=== PATIENT | female | born 1965 | race Caucasian/White ===

== ENCOUNTER 2017-10-15 11:34 | Outpatient (CLI) | payer OTHER | END 2017-10-15 11:35 | disposition critical access hospital (66) | LOC: EMS 11:34 | PROVIDERS: ATTEND Surgery | DX: R46.4 Slowness and poor responsiveness (principal); R73.09 Other abnormal glucose | CPT/HCPCS: A0425; A0427 ==

== ENCOUNTER 2017-10-15 11:46 | Emergency (ER) | payer OTHER ==
--- NOTE | 2017-10-15 11:59 | ED Physician Documentation ---
PD HPI FOCAL NEURO - Stated complaint Stated Complaint: AMS - Chief complaint Chief Complaint: Neuro - History obtained from History obtained from: Family, EMS - History of Present Illness Timing - onset: Today Timing - duration: Minutes Timing - details: Abrupt onset Severity of deficit: Severe Weakness: Arm, Hand, Leg, Foot, Right Baseline status: positive: A&OX3, ambulatory, indep Similar symptoms before: Has not had sx before Recently seen: Not recently seen - Additional information Additional information: states that his was well at 10 AM when he left to go to [employer]. He states that she did not sleep well last night and that she has been under a lot of stress recently with excessive work and she is only sleeping several hours per night and drinking a lot of energy drinks. Today when he came home from [employer] she was sitting on an easy chair and not responding to him. When he could not get more than a word or 2 from her, he called 911. Medics arrived to find her not responding to them and with some right sided deficit. Review of Systems Unable to obtain: AMS, Other (The review of systems is taken from the .) Constitutional: denies: Fever Eyes: denies: Decreased vision Ears: denies: Ear pain Nose: denies: Rhinorrhea / runny nose, Congestion Throat: denies: Sore throat Cardiac: denies: Chest pain / pressure Respiratory: denies: Dyspnea, Cough GI: denies: Abdominal Pain, Vomiting : denies: Dysuria Skin: denies: Rash Musculoskeletal: denies: Neck pain, Back pain, Extremity pain, Extremity swelling Neurologic: denies: Generalized weakness, Focal weakness, Numbness, Headache, Head injury, LOC PD PAST MEDICAL HISTORY - Present Medications Home Medications: Ambulatory Orders Medication Instructions Recorded Confirmed HYDROcod/ACETAM 5/325 [[place] 5/325] 1 each PO 10/15/17 Naproxen 500 mg PO 10/15/17 10/15/17 Ondansetron Odt [Zofran Odt] 10/15/17 Oxycodone HCl/Acetaminophen 1 each PO 10/15/17 [Endocet 7.5-325 mg Tablet] - Allergies Allergies/Adverse Reactions: Allergies Allergy/AdvReac Type Severity Reaction Status Date / Time No Known Drug Allergies Allergy Verified 10/15/17 14:42 PD ED PE NORMAL - Vitals Vital signs reviewed: Yes - General General: Well developed/nourished, Other (The patient is not responsive to voice. She does have a symetric grimmace to pain but is unable to cooperate with the stroke scale. ) - HEENT HEENT: Atraumatic, Other (The right eye is deviated laterally and inferiorly both eyes move with an attempt to follow and pupils are reactive.) - Neck Neck: Supple, no meningeal sign, No bony TTP, No bruit - Cardiac Cardiac: RRR, No murmur - Respiratory Respiratory: No respiratory distress, Clear bilaterally - Abdomen Abdomen: Soft, Non tender - Back Back: No CVA TTP, No spinal TTP - Derm Derm: Normal color, Warm and dry, No rash - Extremities Extremities: No deformity, No edema - Neuro Neuro: Other. No: No sensory deficit Eye Opening: To Pain Motor: Localizes to Pain - Psych Psych: Other (mood is withdrawn and the affect is blunted.) NIHSS - Time Time: 14:10 (partially responsive for cooperation) - Level of Consciousness Level of consciousness: (1) Not alert, but arousable by minor stimulation to obey, or answer LOC Questions: (1) Answers one Q correctly LOC Commands: (1) Performs one correctly - Gaze Best Gaze: (1) Partial gaze palsy - Visual Visual: (0) No loss - Facial Palsy Facial Palsy: (1) Minor paralysis - Motor Arms (both separate) Motor Arm (right): (1) Drift Motor Arm (left): (0) No drift - Motor Legs (both separate) Motor Leg (right): (0) No drift Motor Leg (left): (0) No drift - Limb Ataxia Limb Ataxia: (1) Present in 1 limb - Sensory Sensory: (0) Normal - Best Language Best Language: (1) [id number] - Dysarthria Dysarthria: (1) [id number] dysarthria - Extinction and Inattention (formally neg Extinction and inattention: (1) Visual,tactile,auditory,spatial, or personal inattention - Total Score/Results Total Score/Result: 10 Results - Vitals Vitals: Vital Signs - 24 hr 10/15/17 10/15/17 10/15/17 11:48 13:04 13:06 Temperature 35.9 C L Heart Rate 67 67 Respiratory 18 18 Rate Blood Pressure 174/98 H 165/92 H O2 Saturation 99 99 10/15/17 10/15/17 10/15/17 13:58 14:18 15:22 Temperature Heart Rate 68 67 67 Respiratory 16 18 16 Rate Blood Pressure 147/89 H 178/87 H 172/94 H O2 Saturation 100 100 99 Oxygen O2 Source Room air - EKG (time done) 1255 Rate: Rate (enter#) (65) Rhythm: NSR, LAE QRS: LVH Compare to prior EKG: Old EKG unavailable Computer interpretation: Agree with computer - Labs Labs: Laboratory Tests 10/15/17 10/15/17 10/15/17 11:55 11:55 11:55 WBC 6.6 RBC 4.89 Hgb 13.6 Hct 39.9 MCV 81.6 MCH 27.8 MCHC 34.1 RDW 13.9 Plt Count 229 MPV 9.0 Neut # 3.5 Lymph # 2.5 [place] # 0.4 Eos # 0.2 Baso # 0.0 Absolute Nucleated RBC 0.00 Nucleated RBC % 0.0 PT 11.1 INR 1.0 Sodium 136 Potassium 3.7 Chloride 98 L Carbon Dioxide 27 Anion Gap 11.0 BUN 15 Creatinine 0.7 Estimated GFR (MDRD) 89 Glucose 297 H Calcium 9.3 Total Bilirubin 0.6 AST 25 ALT 29 Alkaline Phosphatase 115 Total Protein 7.6 Albumin 3.8 Globulin 3.8 Albumin/Globulin Ratio 1.0 Lipase 10 L - Rads (name of study) Neck CT angiogram Radiology: Prelim report reviewed, EMP read indepedently, See rad report CT angiogram head Radiology: Prelim report reviewed, EMP read indepedently, See rad report Procedures - IVC sono (time) 1350 Bedside IVC sono: IVC measures (cm) (0.88), Dehydration (est 2 liter deficit.l) PD MEDICAL DECISION MAKING - ED course Complexity details: reviewed old records, reviewed results, re-evaluated patient , considered differential, d/w patient, d/w family ED course: 52-year-old female working 2 jobs and sleeping very little has developed what appears to be an acute stroke. On initial presentation the patient did not appear cooperative and appeared very sleepy. During her CT scan she woke up, yawned deeply and moved both of her arms up above her head, stretched both of her legs and at this point I was concerned about a stroke mimic. When she returned from CT it was apparent that she does have a disconjugate gaze and this was persistent as well as an expressive aphasia and some dysarthria. She continued to have some weakness on the right side although she could perform some tasks directed with this. Tele-stroke was set up and Dr. Alcazar was able to assist us in evaluating the patient's stroke symptoms and recommends the use of alteplase intravenously which was administered. She is administered IV saline as well for dehydration estimated at 2 liters by interrogation of the IVC. She has prompt improvement in her lateralizing symptoms but continues to have the dysconjugate gaze. Dr. Hu is accepting in transfer. Thank you. Departure - Departure Disposition: 02 Transfer Acute Care Hosp Clinical Impression: Cerebrovascular accident (CVA) Qualifiers: CVA mechanism: unspecified Qualified Code(s): I63.9 - Cerebral infarction, unspecified
[2017-10-15 12:04] LABS: BASOPHILS % (AUTO) 0.6 %; EOSINOPHILS # (AUTO) 0.2 10^3/uL (0.0-0.7); EOSINOPHILS % (AUTO) 2.7 %; HGB - HEMOGLOBIN 13.6 g/dL (12.0-16.0); LYMPHOCYTES # (AUTO) 2.5 10^3/uL (1.5-3.5); LYMPHOCYTES % (AUTO) 37.4 %; MEAN CORPUSCULAR HEMOGLOBIN 27.8 pg (27.0-31.0); MEAN CORPUSCULAR HGB CONC 34.1 g/dL (32.0-36.0); MEAN CORPUSCULAR VOLUME 81.6 fL (81.0-99.0); MONOCYTES # (AUTO) 0.4 10^3/uL (0.0-1.0); MONOCYTES % (AUTO) 5.8 %; NEUTROPHILS # (AUTO) 3.5 10^3/uL (1.5-6.6); NEUTROPHILS % (AUTO) 53.5 %; PLT - PLATELET COUNT 229 10^3/uL (130-450); RED BLOOD COUNT 4.89 10^6/uL (4.20-5.40); RED CELL DISTRIBUTION WIDTH 13.9 % (12.0-15.0); WHITE BLOOD COUNT 6.6 x10^3/uL (4.8-10.8)
[2017-10-15 12:16] LABS: ALBUMIN 3.8 g/dL (3.2-5.5); BILIRUBIN,TOTAL 0.6 mg/dL (0.2-1.0); CALCIUM 9.3 mg/dL (8.5-10.3); CREATININE 0.7 mg/dL (0.4-1.0); TOTAL PROTEIN 7.6 g/dL (6.7-8.2)
[2017-10-15] MEDS ORDERED: IOPAMIDOL-300 100 ML VIAL ONE (12:25)
--- NOTE | 2017-10-15 12:25 | CT Report ---
EXAM: CT HEAD EXAM DATE: 10/15/2017 12:09 PM. CLINICAL HISTORY: R side weakness. Suspected stroke. COMPARISON: Previous exam of 10/10/2008. TECHNIQUE: Multiaxial CT images were obtained from the foramen magnum to the vertex. Reformats: Coron al. IV contrast: None. In accordance with CT protocol optimization, one or more of the following dose reduction techniques w ere utilized for this exam: automated exposure control, adjustment of mA and/or KV based on patient s ize, or use of iterative reconstructive technique. FINDINGS: Parenchyma: No intraparenchymal hemorrhage. No evidence of mass, midline shift, or CT findings of inf arction. Blankenship-white differentiation is distinct. Extraaxial Spaces: Normal for age. No subdural or epidural collections identified. Ventricles: Normal in size and position. Sinuses and Orbits: Imaged paranasal sinuses, orbits, and mastoids show no significant abnormality. Bones: No evidence of fracture or calvarial defect. Other: None. IMPRESSION: Normal head CT. [facility] Critical test: Above was discussed with Dr. Winston at time of dictation on 10/15/2017 at 12:21 Pm. Referring Provider Line: [phone] SITE ID: [id number]
[2017-10-15] MEDS ORDERED: IOPAMIDOL-300 100 ML VIAL IVP ONE (12:58)
--- NOTE | 2017-10-15 13:18 | CT Preliminary Report ---
Exam: CT HEAD ANGIO IMPRESSION: CT Head: 1. No enhancing mass is identified in the brain parenchyma. 2. No extra-axial fluid collection is seen CTA Head: 1. The anterior circulation has a normal CTA appearance 2. There is a somewhat attenuated appearance to the left lateral aspect of the basilar tip with a mar kedly diminished enhancing lumen involving the origin and P1 segment of the left [employer]. There is occlus ion of the more distal P2 segment and left [employer]. It is uncertain if this reflects steno-occlusive dise ase or thrombus 3. Stenosis is seen involving the proximal right [employer]. 4. No saccular aneurysm is identified. [facility] SITE ID: [id number]
--- NOTE | 2017-10-15 13:28 | CT Preliminary Report ---
Exam: CT NECK ANGIO IMPRESSION: 1. No hemodynamically significant stenosis is seen in either cervical vertebral artery or cervical IC A. 2. Shotty lymph nodes are seen throughout the neck. These might well be reactive in nature. A lymphop roliferative disorder is not entirely excluded. These are slightly greater in number than typically s een [facility] SITE ID: [id number]
--- NOTE | 2017-10-15 13:43 | CT Report ---
EXAM: CT ANGIOGRAM HEAD. CT SCAN OF THE HEAD WITH CONTRAST. EXAM DATE: 10/15/2017 12:51 PM CLINICAL HISTORY: Right-sided weakness. COMPARISON: CT head without contrast from today. TECHNIQUE: - CT Scan Head: Using a multidetector scanner, axial images were acquired from the foramen magnum to the skull vertex following contrast administration. - CT Angiogram: Using a multidetector scanner, high-resolution axial images were acquired from the sk ull base through vertex following rapid infusion of intravenous contrast. Reformats: Multiplanar MIP reformats were reconstructed. Nascet criteria used for stenosis measurement. IV Contrast: 100 cc Isovue-370. In accordance with CT protocol optimization, one or more of the following dose reduction techniques w ere utilized for this exam: automated exposure control, adjustment of mA and/or KV based on patient s ize, or use of iterative reconstructive technique. FINDINGS: CT HEAD: No enhancing mass is identified in the brain parenchyma. CT ANGIOGRAM HEAD: No filling defect or high-grade stenosis is present in the M1 segment of either MCA. The proximal M2 segments of each MCA are patent. The anterior cerebral arteries are patent. There is an anterior comm unicating artery present with a hypoplastic A1 segment of the right [place] noted. A posterior communicat ing artery is seen on the right. There is a suggestion of a subtle filling defect involving the left lateral aspect of the basilar tip . The proximal P1 segment of the left [employer] demonstrates decreased enhancement. Near the P1-P2 segment junction there is absence of enhancement in the right [employer] with a small caliber inconsistent P2 and P3 segment of the right [employer] noted. There is a high-grade stenosis near the junction of the P1 and P2 segment of the right [employer]. No stenos is or filling defect is seen in the proximal mid basilar trunk. The distal vertebral arteries are pat ent. Expected and enhancement is seen in the major dural venous sinuses. Other: No mass is present in either orbit. No mass is present in the nasopharynx. IMPRESSION: CT Head: 1. No enhancing mass is identified in the brain parenchyma. 2. No extraaxial fluid collection is seen. CTA Head: 1. The anterior circulation has a normal CTA appearance 2. There is a somewhat attenuated appearance to the left lateral aspect of the basilar tip with a mar kedly diminished enhancing lumen involving the origin and P1 segment of the left [employer]. There is occlus ion of the more distal P2 segment of the left [employer]. It is uncertain if this reflects steno-occlusive d isease or thrombus. 3. Stenosis is seen involving the proximal right [employer]. 4. No saccular aneurysm is identified. [facility] Referring Provider Line: [phone] SITE ID: [id number]
--- NOTE | 2017-10-15 13:43 | CT Report ---
EXAM: CT ANGIOGRAM NECK EXAM DATE: 10/15/2017 12:51 PM. CLINICAL HISTORY: Right-sided weakness. COMPARISON: CT angiogram neck from today. CT from today. TECHNIQUE: Routine axial helical imaging was performed from the skull base through the aortic arch. R econstructions: Routine multiplanar 3D MIP reconstructions. IV Contrast: 80 mL Isovue 300. Evaluation of arterial stenosis is based on a NASCET method of measurement. In accordance with CT protocol optimization, one or more of the following dose reduction techniques w ere utilized for this exam: automated exposure control, adjustment of mA and/or KV based on patient s ize, or use of iterative reconstructive technique. FINDINGS: Right Carotid: Minimal atherosclerotic plaque is seen involving the CCA bifurcation. There is a tiny area of plaque ulceration at the origin of the right cervical ICA along its medial aspect best seen on image 230 of the third series. No narrowing or abrupt caliber change is present in the cervical ICA. Left Carotid: Minimal atherosclerotic plaque is seen at the bifurcation of the CCA extending into the origin of the cervical ICA. No narrowing or abrupt caliber change is seen in the cervical ICA. Vertebrals: The vertebral arteries are codominant. No narrowing or abrupt caliber change is present i n either vertebral artery. Great Vessel Origins: No stenosis is seen involving the great vessel origins. Intracranial Circulation: The reader is referred to the patient's CT angiogram of the head report dictated under separate cover . Other: No mass is present in either parotid or submandibular gland. The left thyroid lobe is small. Shotty lymph nodes are seen throughout the neck. These measure up to 8 mm short axis on the right at level II. No mass is present in the nasopharynx or in the floor of mouth. No bulky lymphadenopathy is seen in t he submental region. Degenerative disk disease and osteophyte formation are seen at C4-C5 and C5-C6. IMPRESSION: 1. No hemodynamically significant stenosis is seen in either cervical vertebral artery or cervical IC A. 2. Shotty lymph nodes are seen throughout the neck. These might well be reactive in nature. A lymphop roliferative disorder is not entirely excluded. These are slightly greater in number than typically s een. [facility] Referring Provider Line: [phone] SITE ID: [id number]
[2017-10-15] MEDS ORDERED: SODIUM CHLORIDE 0.9% 1,000 ML IV ONE (14:04)
[2017-10-15] MEDS ORDERED: ALTEPLASE 7.7 MG in WATER FOR INJECTION,STERILE 7.7 ML IV SCH (14:28)
[2017-10-15] MEDS ORDERED: WATER FOR INJECTION STERILE IV SCH (14:30)
[2017-10-15] MEDS ORDERED: ALTEPLASE IV SCH (14:30)
[2017-10-15] MEDS ORDERED: WATER FOR INJECTION STERILE IV STA (14:33)
[2017-10-15] MEDS ORDERED: ALTEPLASE IV STA (14:33)
[2017-10-15 14:46] LABS: PT - PROTHROMBIN TIME 11.1 secs (9.9-12.6)
[2017-10-15 15:54] VITALS: BP 175/89
== END 2017-10-15 15:55 | disposition short-term general hospital (02) ==
LOC: EDUNIT# → ED 11:46
DX: I63.9 Cerebral infarction, unspecified (principal)
CPT/HCPCS: 36415; 70450; 70496; 70498; 80053; 83690; 85025; 85610; 93005; 96365; 99284; 99285; J2997; Q9967

== ENCOUNTER 2018-09-06 10:02 | Outpatient (CLI) | payer OTHER ==
--- NOTE | 2018-09-06 11:54 | XRAY Report ---
Reason: CHRONIC HIP PAIN Procedure Date: 09/06/2018 Accession Number: [id number] / [id number] Procedure: XRN - Hips 2V BILAT CPT Code: FULL RESULT: EXAM: BILATERAL HIP RADIOGRAPHY EXAM DATE: 09/06/2018 10:22 AM. CLINICAL HISTORY: Chronic hip pain. COMPARISON: None. TECHNIQUE: 2 views each. FINDINGS: Bones: Normal. No fractures or bone lesion. Right Hip: Mild to moderate joint space narrowing; no dislocation. Left Hip: Mild to moderate joint space narrowing; no dislocation. Soft Tissues: Normal. No soft tissue swelling. IMPRESSION: Joint space narrowing consistent with osteoarthrosis. [facility]
== END 2018-09-06 10:03 | disposition home or self-care (01) ==
LOC: DI.N 10:02
PROVIDERS: ATTEND Internal Medicine
DX: M16.0 Bilateral primary osteoarthritis of hip (principal); M06.9 Rheumatoid arthritis, unspecified
CPT/HCPCS: 73521

== ENCOUNTER 2018-10-23 11:30 | Outpatient (CLI) | payer OTHER | END 2018-10-23 11:31 | disposition home or self-care (01) | LOC: SC 11:30 | PROVIDERS: ATTEND Internal Medicine Pulmonary Disease | DX: G47.33 Obstructive sleep apnea (adult) (pediatric) (principal); E66.9 Obesity, unspecified; Z68.34 Body mass index [BMI] 34.0-34.9, adult; F17.210 Nicotine dependence, cigarettes, uncomplicated; Z86.73 Personal history of transient ischemic attack (TIA), and cerebral infarction without residual deficits | CPT/HCPCS: 99203; 99212 ==

== ENCOUNTER 2018-11-06 20:25 | Outpatient (CLI) | payer OTHER | END 2018-11-06 20:26 | disposition home or self-care (01) | LOC: SC 20:25 | PROVIDERS: ATTEND Internal Medicine Pulmonary Disease | DX: G47.33 Obstructive sleep apnea (adult) (pediatric) (principal) | CPT/HCPCS: 95810 ==

== ENCOUNTER 2019-01-02 14:14 | Outpatient (CLI) | payer OTHER | END 2019-01-02 14:15 | disposition home or self-care (01) | LOC: SC 14:14 | PROVIDERS: ATTEND Internal Medicine Pulmonary Disease | DX: G47.33 Obstructive sleep apnea (adult) (pediatric) (principal) | CPT/HCPCS: 99212; 99213 ==